=== PATIENT | female | born 1985 | race Asian ===

== ENCOUNTER 2016-04-28 18:45 | Emergency (ER) | payer BC, MEDICAID, OTHER ==
[~2016-04-28] VITALS: Ht 162.6 cm; Wt 86.0 kg
[~2016-04-28 18:45] MED LIST: BACTDS PO; BIRTH CONTROL; CEPH-443 PO; CLIN-73 PO; HYDR-3498 PO; IBUP-1542 PO; LEVO500T72 PO
[2016-04-28 19:01] VITALS: Ht 162.6 cm; Wt 86.0 kg
[2016-04-28] MEDS ORDERED: CEPH-443 PO (21:44)
[2016-04-28] MEDS ORDERED: BACTDS PO (21:44)
[2016-04-28] MEDS ORDERED: IBUP-1542 PO (21:44)
--- NOTE | 2016-04-28 21:56 | ERD ---
ER Documentation Chief Complaint Date/Time DATE: 04/28/16 TIME: 21:52 Chief Complaint RECTAL ABSCESS HPI Patient is a 30-year-old female who presents with an abscess on her rectum. She states that she has pain since 2 days ago. Denies fever or chills. Denies abdominal pain, nausea, vomiting or diarrhea. States that she has a history of this 5 years ago and had surgery. Denies constipation or bleeding. Denies urinary symptoms. Denies chest pain, cough, shortness of breath or difficulty breathing. ROS All systems reviewed and are negative except as per history of present illness. Medications Home Meds Active Scripts Ibuprofen* (Motrin*) 600 Mg Tab, 600 MG PO Q6, #30 TAB Prov:ASHLEY CROSS PA-C 04/28/16 Sulfamethoxazole-Trimethoprim* (Bactrim* DS) 800-160 Mg Tab, 1 TAB PO BID for 5 Days, TAB Prov:ASHLEY CROSS PA-C 04/28/16 Cephalexin* (Keflex*) 500 Mg Capsule, 500 MG PO QID for 5 Days, CAP Prov:ASHLEY CROSS PA-C 04/28/16 Sulfamethoxazole-Trimethoprim* (Bactrim* DS) 800-160 Mg Tab, 1 TAB PO BID for 7 Days, #14 TAB 0 Refills Prov:KRANTHI AC PA-C 11/05/15 Cephalexin* (Keflex*) 500 Mg Capsule, 500 MG PO TID for 7 Days, #21 CAP 0 Refills Prov:KRANTHI AC-C 11/05/15 Hydrocodone Bit-Acetaminophen* ([place]*) 5-325 Mg Tab, 1 TAB PO Q6 Y for PAIN, # 20 TAB Prov:KYLE SMITH MD 10/11/14 Levofloxacin* (Levaquin*) 500 Mg Tablet, 500 MG PO DAILY for 7 Days, TAB Prov:KYLE SMITH MD 10/11/14 Hydrocodone Bit-Acetaminophen* ([place]*) 5-325 Mg Tab, 1 TAB PO Q4H Y for PAIN LEVEL 6-10, #15 TAB Prov:GEORGE SALAS 10/08/14 Ibuprofen* (Ibuprofen*) 600 Mg Tablet, 600 MG PO Q6 for PAIN LEVEL 1-5, #15 TAB Prov:GEORGE SALAS 10/08/14 Clindamycin Hcl* (Clindamycin Hcl*) 300 Mg Capsule, 300 MG PO Q6 for 7 Days, CAP Prov:GEORGE SALAS 10/08/14 Reported Medications [ Control] No Conflict Check 11/29/10 Allergies Allergies: Coded Allergies: No Known Allergies (Verified Allergy, Unknown, 11/05/15) PMhx/Soc Medical and Surgical Hx: pt denies Medical Hx, pt denies Surgical Hx History of Surgery: Yes (rectal abscess) Anesthesia Reaction: No Hx Neurological Disorder: No Hx Respiratory Disorders: No Hx Cardiac Disorders: No Hx Psychiatric Problems: No Hx Miscellaneous Medical Probl: Yes (prediabetic) Hx Alcohol Use: No Hx Substance Use: No Hx Tobacco Use: No FmHx Family History: No coronary disease, No diabetes, No other Physical Exam Vitals Vital Signs Date Time Temp Pulse Resp B/P Pulse Ox O2 Delivery O2 Flow Rate FiO2 04/28/16 19:01 99.9 113 18 124/82 99 Physical Exam GENERAL: Well-developed, well-nourished female. Appears in no acute distress. HEART: Regular rate and rhythm. No murmurs, rubs or gallops. ABDOMEN: No scars, ecchymosis or rashes noted. Soft, nontender, and nondistended. Positive bowel sounds in all four quadrants. No rebound tenderness , no guarding. (-) McBurneys point tenderness. No CVA tenderness. BACK: No midline tenderness. minimal swelling in perirectal area. no erythema. no fluctuance. slightly indurated near previous scar. no drainage. Extremities: Equal pulses bilaterally. No peripheral clubbing, cyanosis or edema. No unilateral leg swelling. NEUROLOGIC: Alert and oriented. Moving all four extremities. 5/5 strength in all extremities. Normal speech. Steady gait. SKIN: Normal color. Warm and dry. No rashes or lesions. Capillary refill < 2 seconds Procedures/MDM ER COURSE: I kept the patient and/or family informed of laboratory and diagnostic imaging results throughout the emergency room course. MEDICAL DECISION MAKING: This is a 30 year old female who presents with abscess. Vital signs were reviewed. Patient is afebrile. Patient is not hypoxic. Patient is not toxic or ill appearing. I do not feel fluctuance and very minimal induration to a small swelling area around perirectal. No incision and drainage can be done at this time. However to rule out abscess inside, a CT scan with contrast was ordered. However patient refused and did not want blood work or imaging studies and stated that due to her insurance, she did not want any other exams except for antibiotics for outpatient therapy. I spoke with patient about risks versus benefits of a CT scan. I advised patient that I cannot rule out an abscess without doing a CT scan patient understood risks and does not want a CT scan. Low suspicion for necrotizing fasciitis, SJS, toxic epidermal necrolysis, Kawasaki, erythema multiforme, gangrene, scarlet fever, meningococcemia, sepsis , anaphylaxis, sepsis, deep space infection, or foreign body. DISCHARGE: At this time, patient is stable for discharge and outpatient management with no new complaints during the ER course. Patient was sent home with Bactrim, Keflex and ibuprofen. Patient will be discharged home with instructions to recheck for new or worsening symptoms such as fever, nausea, weakness, LOC and to follow up with primary care in the next 1-2 days. Patient was advised to return to the ER for any new or worsening symptoms. Plan was discussed and patient and/or family understands and agrees. Home instructions were given. Departure Diagnosis: Primary Impression: Abscess Condition: Stable Patient Instructions: Abscess, Antiobiotic Treatment Only Referrals: ALFA KINSEY (PCP) Additional Instructions: Call your primary care doctor TOMORROW for an appointment during the next 1-2 days.See the doctor sooner or return here if your condition worsens before your appointment time. ASHLEY CROSS PA-C Apr 28, 2016 21:56
[2016-04-30] MEDS ORDERED: HYDR-906 PO (06:38)
== END 2016-04-29 01:00 | disposition home or self-care (01) ==
LOC: FTE 18:45
DX: K61.1 Rectal abscess (principal)
CPT/HCPCS: 99284

== ENCOUNTER 2016-04-30 04:53 | Emergency (ER) | payer MEDICAID ==
[~2016-04-30] VITALS: Ht 162.6 cm; Wt 85.5 kg
[2016-04-30 05:03] VITALS: Ht 162.6 cm; Wt 85.5 kg
--- NOTE | 2016-04-30 06:27 | ERD ---
ER Documentation Chief Complaint Date/Time DATE: 04/30/16 TIME: 06:23 Chief Complaint recata abscess, was here on04/28/16 same c/o ,on abx HPI 30-year-old female who presents to the emergency department today complaining of a rectal abscess. Patient states she has happened in the past. Patient states she was here on April 28 and was given antibiotics. States she is taking them. States she thinks she thought she had a fever yesterday. Denies any fever currently. States she has previously had surgery for this in the past. ROS All systems reviewed and are negative except as per history of present illness. Medications Home Meds Active Scripts Hydrocodone/Acetaminophen ([place] 5-325 Tablet) 1 Each Tablet, 1 TAB PO Q6H Y for PAIN, #10 TAB Prov:FREDY DOTSON PA-C 04/30/16 Ibuprofen* (Motrin*) 600 Mg Tab, 600 MG PO Q6, #30 TAB Prov:ASHLEY CROSS PA-C 04/28/16 Sulfamethoxazole-Trimethoprim* (Bactrim* DS) 800-160 Mg Tab, 1 TAB PO BID for 5 Days, TAB Prov:ASHLEY CROSSC 04/28/16 Cephalexin* (Keflex*) 500 Mg Capsule, 500 MG PO QID for 5 Days, CAP Prov:ASHLEY CROSSC 04/28/16 Sulfamethoxazole-Trimethoprim* (Bactrim* DS) 800-160 Mg Tab, 1 TAB PO BID for 7 Days, #14 TAB 0 Refills Prov:KRANTHI AC PA-C 11/05/15 Cephalexin* (Keflex*) 500 Mg Capsule, 500 MG PO TID for 7 Days, #21 CAP 0 Refills Prov:KRANTHI AC PA-C 11/05/15 Hydrocodone Bit-Acetaminophen* ([place]*) 5-325 Mg Tab, 1 TAB PO Q6 Y for PAIN, # 20 TAB Prov:KYLE SMITH MD 10/11/14 Levofloxacin* (Levaquin*) 500 Mg Tablet, 500 MG PO DAILY for 7 Days, TAB Prov:KYLE SMITH MD 10/11/14 Hydrocodone Bit-Acetaminophen* ([place]*) 5-325 Mg Tab, 1 TAB PO Q4H Y for PAIN LEVEL 6-10, #15 TAB Prov:GEORGE SALAS 10/08/14 Ibuprofen* (Ibuprofen*) 600 Mg Tablet, 600 MG PO Q6 for PAIN LEVEL 1-5, #15 TAB Prov:BETH SALASA 10/08/14 Clindamycin Hcl* (Clindamycin Hcl*) 300 Mg Capsule, 300 MG PO Q6 for 7 Days, CAP Prov:BETH SALASA 10/08/14 Reported Medications [ Control] No Conflict Check 11/29/10 Allergies Allergies: Coded Allergies: No Known Allergies (Verified Allergy, Unknown, 11/05/15) PMhx/Soc History of Surgery: Yes (rectal abscess) Anesthesia Reaction: No Hx Neurological Disorder: No Hx Respiratory Disorders: No Hx Cardiac Disorders: No Hx Psychiatric Problems: No Hx Miscellaneous Medical Probl: Yes (prediabetic) Hx Alcohol Use: No Hx Substance Use: No Hx Tobacco Use: No Smoking Status: Never smoker Physical Exam Vitals Vital Signs Date Time Temp Pulse Resp B/P Pulse Ox O2 Delivery O2 Flow Rate FiO2 04/30/16 05:03 97.8 99 20 122/78 100 Physical Exam Const: No acute distress Head: Atraumatic Eyes: Normal Conjunctiva ENT: Normal External Ears, Nose and Mouth. Neck: Full range of motion..~ No meningismus. Resp: Clear to auscultation bilaterally Cardio: Regular rate and rhythm, no murmurs Abd: Soft, non tender, non distended. Normal bowel sounds Skin: Two 1 cm abscess right side of rectum that is draining. Two 1 cm right side of rectum that is draining. No evidence of cellulitis. No warmth. Localized erythema. Back: No midline or flank tenderness Ext: No cyanosis, or edema Neur: Awake and alert Psych: Normal Mood and Affect Results 24 hrs Current Medications Medications (Trade) Dose Ordered Sig/Jo Ann Route PRN Reason Start Time Stop Time Status Last Admin Dose Admin Acetaminophen/ Hydrocodone Bitart ([place] (5/325)) 1 tab ONCE ONCE PO 04/30/16 06:30 04/30/16 06:31 DC 04/30/16 06:24 Lidocaine (Xylocaine 1% (Mdv) 20 ml) 20 ml ONCE ONCE SC 04/30/16 06:30 04/30/16 06:31 DC Procedures/MDM This a 30-year-old female who presents today for an abscess on her rectum. Patient has had pain and symptoms per the past 5 days. Patient was here on April 28 time at that time there was no evidence of fluctuance and the abscess was not drained at that time. Patient was given a prescription for Bactrim and Keflex however patient returns today complaining of continued pain and worsening of symptoms. On physical exam patient did have 2, 1 cm abscess that was already draining however I did indicate to the patient that I could leave the abscess is or attempt to open up up further. Patient has requested that I open it up further. The risks and benefits of the procedure were explained to the patient and patient agree to proceed. The area was prepped in the usual sterile fashion. There were no complications. Patient tolerated the procedure well. Abscess Incision and Drainage with irrigation by me: Location: rectum Anesthesia: [Local 1% Lidocaine] 3 mL Technique: [Irrigated. Disrupted loculations w/ instrumentation ] Packing: [None] Complications: [Neurovascularly intact post procedure] 48 hour wound check. Scar minimization instructions given. Patient is afebrile and otherwise well-appearing. Low suspicion for sepsis, deep space infection. No evidence of cellulitis. Patient was given [place] here in the emergency department. Will give her a short course for home. At this time the patient is stable for discharge and outpatient management. Patient should follow up with their PCP in the next 1-2 days. They may return to the emergency department sooner for any persistent or worsening of symptoms. Patient understood and agreed with the plan. Note: Correction Dr. Colon should have been the attending physician on the chart. Departure Diagnosis: Primary Impression: Abscess Condition: Fair FREDY DOTSON PA-C Apr 30, 2016 06:27
[2016-04-30] MEDS ORDERED: LIDOCAINE 1% (MDV) 20 ML INJ SC ONE (06:30)
[2016-04-30] MEDS ORDERED: HYDROCODONE/APAP (5/325) TAB PO ONE (06:30)
[2016-04-30] MEDS ORDERED: HYDR-906 PO (06:38)
== END 2016-04-30 07:52 | disposition home or self-care (01) ==
LOC: FTE 04:53
DX: K61.1 Rectal abscess (principal)
CPT/HCPCS: 45005; Z7502; Z7610

== ENCOUNTER 2017-04-17 18:57 | Emergency (ER) | END 2017-04-17 22:38 | disposition home or self-care (01) ==